=== PATIENT | male | born 1990 | race African-American/Black ===

== ENCOUNTER 2017-02-19 09:09 | Emergency (ER) | payer MEDICAID ==
[2017-02-19 09:15] VITALS: BP 119/74
[2017-02-19] MEDS ORDERED: IBUPROFEN 800 MG TABLET PO ONE (09:29)
[2017-02-19] MEDS ORDERED: DIPHENHYDRAMINE HCL 25 MG CAPSULE PO ONE (09:29)
--- NOTE | 2017-02-19 09:29 | ER Document Report ---
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 Admits to itching without burning. no pain, hand feels tense around the swelling with movement but ROM intact, sensation intact Pain Level: 2 Associated Symptoms: None Similar symptoms previously: No Recently seen / treated by doctor: No - DERM Skin Color: Normal Past Medical History - General Information source: Patient - IDDM - Social History Smoking Status: Never Smoker Family History: Reviewed & Not Pertinent Patient has suicidal ideation: No Patient has homicidal ideation: No Endocrine Medical History: Reports: Hx Diabetes Mellitus Type 1 Renal/ Medical History: Denies: Hx Peritoneal Dialysis - Immunizations Hx Diphtheria, Pertussis, Tetanus Vaccination: Yes Vertical Provider Document - CONSTITUTIONAL Agree With Documented VS: Yes Exam Limitations: No Limitations General Appearance: WD/WN, No Apparent Distress - INFECTION CONTROL TRAVEL OUTSIDE OF THE [place] IN LAST 30 DAYS: No - RESPIRATORY Respiratory: Breath Sounds Normal, No Respiratory Distress, Chest Non-Tender O2 Sat by Pulse Oximetry: 100 - CARDIOVASCULAR Cardiovascular: Regular Rate, Regular Rhythm, No Murmur Pulses: Normal: Radial, Dorsalis pedis Notes: cap refill < 2 seconds in BUE's - MUSCULOSKELETAL/EXTREMETIES Musculoskeletal/Extremeties: MAEW, FROM, Non-Tender, Edema - 1+ edema around individual vesicles on dorsal ULNAR ASPECT OF THE LEFT HAND - NEURO Level of Consciousness: Awake, Alert, Appropriate Motor/Sensory: No Motor Deficit, No Sensory Deficit - DERM Integumentary: Warm, Dry, Rash - isolated individual vesicle without erythema, nontender Course - Re-evaluation Re-evalutation: 02/19/17 09:39 Patient is a 26-year-old male who presents with history and physical exam findings consistent with a contact dermatitis. Vital signs stable. Patient to be placed on steroid taper, take Motrin and Benadryl as indicated on over-the- counter packaging. Patient given strict return precautions. Agreeable with plan. - Vital Signs Vital signs: Temp Pulse Resp BP Pulse Ox 98.1 F 74 18 119/74 100 02/19/17 09:13 02/19/17 09:13 02/19/17 09:13 02/19/17 09:13 02/19/17 09:13 Discharge - Discharge Clinical Impression: Contact dermatitis Qualifiers: Contact dermatitis type: irritant Contact dermatitis trigger: unspecified trigger Qualified Code(s): L24.9 - Irritant contact dermatitis, unspecified cause Condition: Good Disposition: HOME, SELF-CARE Instructions: Contact Dermatitis (OM) Additional Instructions: Please take [id number] Benadryl and ibuprofen as prescribed. These will help decrease the amount of swelling and inflammation Please take your prescription as written. Please return with any signs of redness, drainage, fever, red streaking up your arm, or without improvement after medications. Prescriptions: Methylprednisolone [Medrol Dosepack (4 mg/Tab) 21 Tab/Dosepak] 4 mg PO ASDIR PRN #21 [email or web address] PRN Reason:
== END 2017-02-19 09:50 | disposition home or self-care (01) ==
LOC: ER 09:09
DX: L24.9 Irritant contact dermatitis, unspecified cause (principal); E10.9 Type 1 diabetes mellitus without complications
CPT/HCPCS: 99281; J3490 ×2

== ENCOUNTER 2017-03-04 16:12 | Emergency (ER) | payer MEDICAID ==
[2017-03-04] MEDS ORDERED: DEXTROSE 40% GEL 15 GM TUBE PO STA (16:21)
[2017-03-04] MEDS ORDERED: DEXTROSE 40% GEL 15 GM TUBE PO ONE (16:24)
--- NOTE | 2017-03-04 16:28 | ER Document Report ---
ED Medical Screen (RME) - General Chief Complaint: Low Blood Sugar Stated Complaint: LOW BLOOD SUGAR Time Seen by Provider: 03/04/17 16:21 Mode of Arrival: Wheelchair Information source: Relative TRAVEL OUTSIDE OF THE [place] IN LAST 30 DAYS: No - HPI Onset: This afternoon Onset/Duration: Gradual Context: UNKNOWN CAUSE. LONG-TERM DIABETIC, ON INSULIN PUMP Quality of pain: No pain Associated Symptoms: Weakness, Other - CONFUSED, LETHARGIC Exacerbated by: Denies Relieved by: Denies Similar symptoms previously: Yes - NOT RECENT Recently seen / treated by doctor: No - Related Data Allergies/Adverse Reactions: No Known Allergies Allergy (Verified 02/19/17 09:12) Past Medical History - General Information source: Relative - Social History Lives with: Family Family history: DM Endocrine Medical History: Reports: Hx Diabetes Mellitus Type 1 Renal/ Medical History: Denies: Hx Peritoneal Dialysis - Immunizations Hx Diphtheria, Pertussis, Tetanus Vaccination: Yes Review of Systems - Review of Systems -: Yes ROS unobtainable due to patient's medical condition Physical Exam - Vital signs Vitals: Pulse Resp BP Pulse Ox 71 16 147/85 H 98 03/04/17 16:13 03/04/17 16:13 03/04/17 16:13 03/04/17 16:13 Interpretation: No: Tachycardic, Hypoxic, Febrile - General General appearance: Lethargic In distress: None - Respiratory Respiratory status: No respiratory distress - Cardiovascular Rhythm: Regular - Skin Skin Temperature: Cool Skin Moisture: Dry Course - Vital Signs Vital signs: Temp Pulse Resp BP Pulse Ox 71 16 147/85 H 98 03/04/17 16:13 03/04/17 16:13 03/04/17 16:13 03/04/17 16:13
--- NOTE | 2017-03-04 16:50 | ER Document Report ---
ED General - General Chief Complaint: Low Blood Sugar Stated Complaint: LOW BLOOD SUGAR Time Seen by Provider: 03/04/17 16:21 Mode of Arrival: Stretcher Information source: Parent Notes: 26-year-old man with a history of diabetes, legally blind from glaucoma who presents to the emergency room with low blood sugar. The patient's family states that his sugar was low this morning 30 and they called EMS and EMS treated the patient with IV fluids and sugar and she glucose went up to 150. Approximately half an hour after EMS left, the sugar started to drop and it ultimately went down again to 34 at which time he was given 2 glucose packets at home by family. He was brought in for persistent blood sugar at the glucose packs (Accu-Chek 27) TRAVEL OUTSIDE OF THE [place] IN LAST 30 DAYS: No - HPI Onset: Just prior to arrival Onset/Duration: Sudden Quality of pain: No pain Severity: None Pain Level: Denies Associated symptoms: denies: Chest pain, Fever, Shortness of breath Exacerbated by: Denies Relieved by: Denies Similar symptoms previously: Yes Recently seen / treated by doctor: Yes - Related Data Allergies/Adverse Reactions: No Known Allergies Allergy (Verified 02/19/17 09:12) Home Medications: Current Home Medications Doxycycline Hyclate [Vibramycin] 50 mg PO DAILY 03/04/17 [History] Insulin Aspart [Novolog Insulin 100 Unit/1 ml 10 ml] 0 unit SUBCUT .SLD SCALE [History] Lisinopril [Prinivil 5 mg Tablet] 5 mg PO DAILY 03/04/17 [History] Multivitamin [Tab-A-Horacio] 1 tab PO DAILY 03/04/17 [History] Past Medical History - General Information source: Relative - Social History Smoking Status: Never Smoker Cigarette use (# per day): No Chew tobacco use (# tins/day): No Frequency of alcohol use: None Drug Abuse: None Lives with: Family Family History: Reviewed & Not Pertinent Patient has suicidal ideation: No Patient has homicidal ideation: No - Past Medical History Cardiac Medical History: Reports: None Pulmonary Medical History: Reports: None EENT Medical History: Reports: None Neurological Medical History: Reports: None Endocrine Medical History: Reports: Hx Diabetes Mellitus Type 1 Renal/ Medical History: Reports: None. Denies: Hx Peritoneal Dialysis Malignancy Medical History: Reports None GI Medical History: Reports: None Musculoskeltal Medical History: Reports None Skin Medical History: Reports None Psychiatric Medical History: Reports: None Traumatic Medical History: Reports: None Surgical Hx: Negative - Immunizations Hx Diphtheria, Pertussis, Tetanus Vaccination: Yes Review of Systems - Review of Systems Notes: Review of systems: Constitutional: Denies fever, chills. EENT: Denies ear pain, sinus tenderness, throat pain, throat swelling. Cardiovascular: Denies chest pain, palpitations, dyspnea or edema. Respiratory: Denies wheezing, cough, hemoptysis. Abdomen: Denies abdominal pain, nausea, vomiting, diarrhea. Denies BRBPR or melena. Genitourinary: Denies dysuria, pyuria, hematuria, flank pain. Musculoskeletal: denies joint pain or swelling, denies back pain. Neurologic: See H&P Skin: Denies rash, lesions. Physical Exam - Vital signs Vitals: Pulse Resp BP Pulse Ox 71 16 147/85 H 98 03/04/17 16:13 03/04/17 16:13 03/04/17 16:13 03/04/17 16:13 Notes: Physical exam: GENERAL: 26-year-old man, confused, eyes open, nonverbal at this point. HEAD: Atraumatic, normocephalic. EYES: Pupils equal round and reactive to light, extraocular movements intact, sclera anicteric, conjunctiva are normal. ENT: Moist mucous membranes. NECK: Normal range of motion, supple without lymphadenopathy or JVD. LUNGS: Breath sounds clear to auscultation bilaterally and equal. No wheezes rales or rhonchi. HEART: Regular rate and rhythm without murmurs, rubs or gallops. ABDOMEN: Soft, normoactive bowel sounds. No tenderness to palpation. No guarding, no rebound. No masses appreciated. EXTREMITIES: Normal range of motion, no pitting or edema. No clubbing or cyanosis. NEUROLOGICAL: Cranial nerves II through XII grossly intact. Normal speech, moving extremities. PSYCH: Confused and nonverbal SKIN: Warm, Dry, normal turgor, no rashes or lesions noted. Insulin pump to the left thigh is off. Course - Re-evaluation Re-evalutation: 03/04/17 21:34 Concern for this patient is he has had wide swings several times today of his sugar. Given this, I have elected to bring him in for observation to follow his sugar. I discussed the case with Dr. Liang and we will bring the patient into the [facility] 03/04/17 22:[address] Orr who is the patient's skoog machine operator. She is available to the patient will require an long and she would actually prefer to manage his patients blood sugar as an outpatient. She is stated that managing the blood sugar with the patient on the pump is actually easier as an outpatient and there is increased chances of getting a ruled by trying to manage in the hospital. The patient actually would like to go home. And he looks good at this time. So the plan will be to discharge the patient home. The thought is that he also bolused himself initially because he thought he was going to have more carbs and he actually did and that once he got hypoglycemic, the corrections began to overshoot. However, he seems to have improved in the last few hours. 03/04/17 23:09 - Vital Signs Vital signs: Temp Pulse Resp BP Pulse Ox 71 20 124/89 H 100 03/04/17 16:13 03/04/17 17:24 03/04/17 17:24 03/04/17 17:24 - Laboratory Result Diagrams: 03/04/17 16:45 03/04/17 16:45 Laboratory results interpreted by me: 03/04/17 03/04/17 03/04/17 16:45 16:45 21:05 Chloride 108 H Creatinine 1.48 H Est GFR (Non-Af Amer) 57 L Glucose 30 L* POC Glucose > 550 H* Hemoglobin A1c % 8.6 H Alkaline Phosphatase 193 H - Diagnostic Test Radiology reviewed: Image reviewed, Reports reviewed - Chest x-ray shows no infiltrates or effusions Discharge - Discharge Clinical Impression: uncontrolled diabetes Clinical Impression: (Ruled Out): Controlled diabetes Condition: Stable Disposition: HOME, SELF-CARE Additional Instructions: Recommendations Drink plenty of fluids, advance diet. Continue with the insulin pump. If you have any questions regarding the insulin pump, call Dr. Orr: She is available this weekend. Additionally, Dr. Orr would like to see you in the office on Tuesday at 1 PM. Return to the ER for any problems. Forms: Parent Work Note Referrals: ALISA TAO MD [Primary Care Provider] - Follow up as needed
[2017-03-04 17:05] LABS: ABSOLUTE BASOPHILS # (AUTO) 0.1 10^3/uL (0.0-0.2); ABSOLUTE LYMPHOCYTES (AUTO) 1.5 10^3/uL (0.5-4.7); ABSOLUTE MONOCYTES (AUTO) 0.4 10^3/uL (0.1-1.4); HEMOGLOBIN 14.2 g/dL (13.5-17.0); MEAN CORPUSCULAR VOLUME 85 fl (80-97); MONOCYTES % (AUTO) 7.9 % (3-13)
[2017-03-04 17:13] LABS: BASOPHILS % (AUTO) 1.2 % (0-2); EOSINOPHILS % (AUTO) 0.5 % (0-6); HEMATOCRIT 42.5 % (37.9-51.0); HGB HCT DIFFERENCE 0.1; LYMPHOCYTES % (AUTO) 30.2 % (13-45); MEAN CORPUSCULAR HEMOGLOBIN 28.3 pg (27.0-33.4); MEAN CORPUSCULAR HGB CONC 33.4 g/dL (32.0-36.0); RED BLOOD COUNT 5.01 10^6/uL (4.35-5.55); RED CELL DISTRIBUTION WIDTH 13.3 % (11.5-14.0); SEGMENTED NEUTROPHILS % (AUTO) 60.2 % (42-78)
[2017-03-04 17:19] LABS: ALANINE AMINOTRANSFERASE 56 U/L (21-72); ALBUMIN 4.2 g/dL (3.5-5.0); ALKALINE PHOSPHATASE 193 U/L (38-126); ANION GAP 11 (5-19); ASPARTATE AMINO TRANSFERASE 27 U/L (17-59); BILIRUBIN,DIRECT 0.4 mg/dL (0.0-0.4); BILIRUBIN,TOTAL 0.7 mg/dL (0.2-1.3); BLOOD UREA NITROGEN 8 mg/dL (7-20); CALCIUM 9.6 mg/dL (8.4-10.2); CARBON DIOXIDE 25 mmol/L (22-30); CHLORIDE 108 mmol/L (98-107); CREATININE RESULT 1.48 mg/dL (0.52-1.25); SODIUM 143.8 mmol/L (137-145); TOTAL PROTEIN 7.8 g/dL (6.3-8.2)
[2017-03-04 17:27] LABS: GLUCOSE 30 mg/dL (75-110)
[2017-03-04] MEDS ORDERED: DEXTROSE 5%-1/2 NORMAL SALINE 1,000 ML IV ONE (17:28)
[2017-03-04] MEDS ORDERED: DEXTROSE 50%-WATER 25 GM/50 ML DISP.SYRIN IV ONE ×2 (17:28→17:31)
[2017-03-04] MEDS ORDERED: METOCLOPRAMIDE HCL INJ/PF 10 MG/2 ML SDV IV ONE (18:06)
[2017-03-04] MEDS ORDERED: DIPHENHYDRAMINE HCL 50 MG/ML VIAL IV ONE (18:06)
[2017-03-04] MEDS ORDERED: ACETAMINOPHEN 325 MG TABLET PO ONE (18:06)
[2017-03-04] MEDS ORDERED: 1/2 NORMAL SALINE 1,000 ML IV ONE (18:06)
--- NOTE | 2017-03-04 18:20 | RADIOLOGY REPORT (SQ) ---
EXAM DESCRIPTION: CHEST SINGLE VIEW COMPLETED DATE/TIME: 03/04/2017 6:03 pm REASON FOR STUDY: altered mental status COMPARISON: 06/15/2016 EXAM PARAMETERS: NUMBER OF VIEWS: One view. TECHNIQUE: Single frontal radiographic view of the chest acquired. RADIATION DOSE: NA LIMITATIONS: None. FINDINGS: LUNGS AND PLEURA: No opacities, masses or pneumothorax. No pleural effusion. MEDIASTINUM AND HILAR STRUCTURES: No masses. Contour normal. HEART AND VASCULAR STRUCTURES: Heart normal in size. Normal vasculature. BONES: No acute findings. HARDWARE: None in the chest. OTHER: No other significant finding. IMPRESSION: NO ACUTE RADIOGRAPHIC FINDING IN THE CHEST. TECHNICAL DOCUMENTATION: JOB ID: [id number]
[2017-03-04] MEDS ORDERED: INSULIN REG, HUMAN 100 UNIT/ML 3 ML VIAL (PYX) IV ONE (21:12)
[2017-03-04] MEDS ORDERED: INSULIN REG, HUMAN 100 UNIT/ML 3 ML VIAL (PYX) SUBCUT ONE (21:37)
[2017-03-05 03:01] VITALS: BP 131/84
== END 2017-03-04 23:20 | disposition home or self-care (01) ==
LOC: ER 16:12 → EH 21:59 → UNDOADMOB 21:59 → ER 23:20
DX: E10.649 Type 1 diabetes mellitus with hypoglycemia without coma (principal); H54.8 Legal blindness, as defined in USA; H40.9 Unspecified glaucoma; Z79.4 Long term (current) use of insulin; Z96.41 Presence of insulin pump (external) (internal)
CPT/HCPCS: 99285; 96361; 96374; 96375; 36415; 82962; 83735; 85025; 80053; 83036; 71010; J3490; J1200; J2765; J1815

== ENCOUNTER 2019-10-04 22:19 | Emergency (ER) | payer MEDICARE, MEDICAID ==
[2019-10-04] MEDS ORDERED: DEXTROSE 5%-WATER 1000 ML 500 ML IV PRN (22:37)
[2019-10-04] MEDS ORDERED: DEXTROSE 50%-WATER 25 GM/50 ML DISP.SYRIN IV ONE (22:40)
--- NOTE | 2019-10-04 23:28 | ER Document Report ---
ED General - General Chief Complaint: Low Blood Sugar Stated Complaint: BLOOD SUGAR ISSUES Primary Care Provider: MONTANA CENTENO MD [Primary Care Provider] - Follow up as needed TRAVEL OUTSIDE OF THE [place] IN LAST 30 DAYS: No - HPI Notes: Patient is a 28-year-old gentleman with history of type 1 diabetes. He uses an insulin pump. He was trying to bolus himself with Humalog, 80 units. He states initially the pump stated that it failed, so he bolused again. He believes he got double the dose of his normal Humalog. EMS was contacted. He states otherwise he is been doing well. He has been eating and drinking normally. Normal activity levels. He removed his insulin pump prior to EMS arrival. - Related Data Allergies/Adverse Reactions: No Known Allergies Allergy (Verified 10/04/19 22:27) Home Medications: Lisinopril, Humalog Past Medical History - General Information source: Patient - Social History Smoking Status: Former Smoker Frequency of alcohol use: None Drug Abuse: None Family History: Reviewed & Not Pertinent Patient has suicidal ideation: No Patient has homicidal ideation: No - Past Medical History Cardiac Medical History: Reports: Hx Hypertension Endocrine Medical History: Reports: Hx Diabetes Mellitus Type 1 Renal/ Medical History: Denies: Hx Peritoneal Dialysis - Immunizations Hx Diphtheria, Pertussis, Tetanus Vaccination: Yes Review of Systems - Review of Systems Constitutional: See HPI -: Yes All other systems reviewed and negative Physical Exam - Vital signs Vitals: BP 182/108 H 10/04/19 22:23 - Notes Notes: Vital signs reviewed, please refer to chart. Head is normocephalic, atraumatic. Right cornea is hazy, pupils not visible. Left pupil is round, reactive to light.. Neck is supple without meningismus. Heart is regular rate and rhythm. Lungs are clear to auscultation bilaterally. Abdomen is soft, nontender, normoactive bowel sounds throughout. Extremities without cyanosis, clubbing. Posterior calves are nontender. Peripheral pulses are equal. Skin is warm and dry. Patient is awake, alert, neurological exam is nonfocal. Course - Re-evaluation Re-evalutation: 10/04/19 23:30 Patient presents to the emergency department for evaluation. In route EMS found his sugar to be as low as 13. He was bolused with D10. On arrival his blood sugar was 112. We gave him half an amp of D50. He was given food/juice. He was kept on D5 on continuous infusion. Patient is stable at this time, his blood glucose is over 300. Will return off the D5 infusion, continue to monitor. 10/05/19 01:59 Patient is blood sugar continues to be high. He has an insulin pump at home. He was monitored for approximately 4 hours after the injection of the double dose of insulin. The duration of action of Humalog is typically 2 to 4 hours. He remains hyperglycemic but I feel comfortable with this given the fact that his blood glucose was 13 for EMS. He can hook tender his pump at home when he returns. He is to proceed with his regular insulin doses at home as prescribed. He is to return to the emergency department with worsening or new concerning symptoms of any sort. - Vital Signs Vital signs: Temp Pulse Resp BP Pulse Ox 97.8 F 85 17 144/83 H 100 10/04/19 23:49 10/04/19 22:33 10/04/19 23:47 10/04/19 23:47 10/04/19 23:47 - Laboratory Laboratory results interpreted by me: 10/04/19 10/04/19 10/05/19 22:22 23:03 01:51 POC Glucose 112 H 335 H 479 H* Discharge - Discharge Clinical Impression: Hypoglycemia due to insulin Condition: Stable Disposition: HOME, SELF-CARE Instructions: Hypoglycemia ([facility]) Additional Instructions: Please resume your normal insulin dosing upon returning home. Rest, stay well- hydrated. Follow-up with primary care next week. Return to the emergency department with worsening or new concerning symptoms of any sort. Referrals: MONTANA CENTENO MD [Primary Care Provider] - Follow up as needed
[2019-10-05] MEDS ORDERED: NORMAL SALINE 1000 ML 1,000 ML IV ONE (00:08)
[2019-10-05 02:33] VITALS: BP 143/91
== END 2019-10-05 02:42 | disposition home or self-care (01) ==
LOC: ER 22:19
DX: T38.3X1A Poisoning by insulin and oral hypoglycemic [antidiabetic] drugs, accidental (unintentional), initial encounter (principal); E10.649 Type 1 diabetes mellitus with hypoglycemia without coma; Z79.4 Long term (current) use of insulin; I10 Essential (primary) hypertension; Z79.899 Other long term (current) drug therapy; Z87.891 Personal history of nicotine dependence
CPT/HCPCS: 99285; 96360; 96361; 82962; J3490; J7060; J7030